=== PATIENT | male | born 1970 | race Caucasian/White ===

== ENCOUNTER 2017-05-04 17:47 | Inpatient (IN) | payer OTHER ==
[~2017-05-04] VITALS: Ht 190.5 cm; Wt 115.4 kg
[~2017-05-04 17:47] MED LIST: AMLO-511 PO; AMLO-512 PO; ARIP2 PO; ASPI-1182 PO; ATOR40TA28 PO; BECL8.7A5 IH; BUPR150T8 PO; CLON.5 PO; DIAZ5 PO; DICY20 PO; DOCU100C54 PO; EPIN0.3P3 IM; FLUO-191 PO; FLUT16H NASAL; FURO40 PO; GABA-533 PO; HYDR2TAB8 PO; IBUP-1506 PO; ISOS30TA6 PO; LISI-662 PO; LOPE2 PO; LORA10TA7 PO; MECL-111 PO; METO-296 PO; MOME13HF IH; MONT10TA21 PO; NITR.4 SL; OMEP20 PO; ONDA4 PO; POTA10CA44 PO; PRED10 PO; SIMV-259 PO; SPIR25 PO; SUCR1TAB PO; ZONI50CA3 PO
[2017-05-04 20:12] LABS: BASOPHILS # (AUTO) 0.06 K/uL (0.00-0.20); BASOPHILS % (AUTO) 0.9 % (0.0-2.0); EOSINOPHILS # (AUTO) 0.15 K/uL (0.00-0.70); EOSINOPHILS % (AUTO) 2.04 % (1.0-6.0); HEMATOCRIT 48.1 % (41-53); HEMOGLOBIN 16.4 g/dL (13.5-17.5); LYMPHOCYTES # (AUTO) 2.4 K/uL (1.0-4.8); MEAN CORPUSCULAR HEMOGLOBIN 31.3 pg (26.0-34.0); MEAN CORPUSCULAR VOLUME 92 fL (80-100); MONOCYTES # (AUTO) 0.4 K/uL (0.1-1.0); MONOCYTES % (AUTO) 5.6 % (2.0-9.0); NEUTROPHILS # (AUTO) 4.5 K/uL (1.8-7.7); NEUTROPHILS % (AUTO) 59.5 % (40.0-70.0); PLATELET COUNT (AUTO) 155 K/uL (150-450); RED BLOOD CELL COUNT(AUTO) 5.23 MIL/uL (4.50-5.90); RED CELL DISTRIBUTION WIDTH 14.1 % (11.5-14.5)
[2017-05-04] MEDS ORDERED: ONDANSETRON HCL 4 MG/2 ML VIAL IVP ONE (20:15)
[2017-05-04 20:20] LABS: ANION GAP 6 mmol/L (8-16); CALCIUM, TOTAL 8.9 mg/dL (8.8-10.5); CARBON DIOXIDE 28 mmol/L (22-29); CHLORIDE 101 mmol/L (98-107); CREATININE 0.99 mg/dL (0.60-1.30); GLOMERULAR FILTR. RATE CALC > 60 mL/min (>60); GLUCOSE,RANDOM 93 mg/dL (70-110); POTASSIUM 4.4 mmol/L (3.5-5.1); SODIUM SERUM 135 mmol/L (136-145); UREA NITROGEN, BLOOD 14 mg/dL (7-18)
[2017-05-04 20:26] LABS: ALANINE AMINOTRANSFERASE 31 U/L (12-78); ALKALINE PHOSPHATASE 91 U/L (46-116); ASPARTATE AMINOTRANSFERASE 17 U/L (15-37); BILIRUBIN,TOTAL 0.4 mg/dL (0.1-1.0); TOTAL PROTEIN, SERUM 7.3 g/dL (6.4-8.2)
[2017-05-04] MEDS ORDERED: IOVERSOL 350 MG/ML 100 ML VIAL ONE (21:29)
[2017-05-04] MEDS ORDERED: FentaNYL CITRATE-PF 100 MCG/2 ML VIAL IVP ONE ×2 (21:30→23:15)
[2017-05-04] MEDS ORDERED: 0.9% SODIUM CHLORIDE 10 ML SYRINGE IVP PRN (22:00)
[2017-05-04] MEDS ORDERED: ONDANSETRON HCL 4 MG/2 ML VIAL IVP PRN (22:00)
[2017-05-04] MEDS ORDERED: ACETAMINOPHEN 325 MG TABLET PO PRN (22:00)
[2017-05-04 23:29] VITALS: BP 138/63
[2017-05-05] MEDS ORDERED: 0.9% SODIUM CHLORIDE 10 ML SYRINGE IVP PRN (00:45)
[2017-05-05] MEDS ORDERED: MECLIZINE HCL 25 MG TABLET PO PRN (00:45)
[2017-05-05] MEDS ORDERED: ACETAMINOPHEN 325 MG TABLET PO PRN (00:45)
[2017-05-05] MEDS ORDERED: BISACODYL 10 MG RECTAL RECTAL SUPPOSITORY PR PRN (00:45)
[2017-05-05] MEDS ORDERED: MAGNESIUM HYDROXIDE SUSPENSION 30 ML UDCUP PO PRN (00:45)
[2017-05-05] MEDS ORDERED: ALBUTEROL SULFATE 2.5 MG/0.5 ML NEB SOLUTION NEB PRN (00:45)
[2017-05-05] MEDS ORDERED: IPRATROPIUM BROMIDE 0.5 MG/2.5 ML NEB SOLUTION NEB PRN (00:45)
[2017-05-05] MEDS ORDERED: ONDANSETRON HCL 4 MG/2 ML VIAL IVP PRN (00:45)
[2017-05-05] MEDS: NITROGLYCERIN 0.4 MG SUBLINGUAL TABLET #25 SL PRN ×2 (01:44→03:46)
[2017-05-05 04:25] VITALS: BP 140/78
[2017-05-05 06:06] LABS: BASOPHILS % (AUTO) 0.4 % (0.0-2.0); EOSINOPHILS % (AUTO) 2.9 % (1.0-6.0); HEMATOCRIT 46.3 % (41-53); HEMOGLOBIN 15.9 g/dL (13.5-17.5); LYMPHOCYTES # (AUTO) 1.9 K/uL (1.0-4.8); LYMPHOCYTES % (AUTO) 32.6 % (22.0-44.0); MEAN CORPUSCULAR HEMOGLOBIN 31.7 pg (26.0-34.0); MEAN CORPUSCULAR HGB CONC 34.3 G/dL (31.0-37.0); MEAN CORPUSCULAR VOLUME 92 fL (80-100); MONOCYTES # (AUTO) 0.4 K/uL (0.1-1.0); MONOCYTES % (AUTO) 7.7 % (2.0-9.0); NEUTROPHILS # (AUTO) 3.2 K/uL (1.8-7.7); NEUTROPHILS % (AUTO) 56.4 % (40.0-70.0); PLATELET COUNT (AUTO) 155 K/uL (150-450); RED BLOOD CELL COUNT(AUTO) 5.02 MIL/uL (4.50-5.90); RED CELL DISTRIBUTION WIDTH 14.2 % (11.5-14.5)
[2017-05-05 06:22] LABS: ALANINE AMINOTRANSFERASE 27 U/L (12-78); ALBUMIN 3.6 g/dL (3.4-5.0); ALKALINE PHOSPHATASE 87 U/L (46-116); ANION GAP 9 mmol/L (8-16); ASPARTATE AMINOTRANSFERASE 12 U/L (15-37); BILIRUBIN,TOTAL 0.6 mg/dL (0.1-1.0); CALCIUM, TOTAL 8.6 mg/dL (8.8-10.5); CARBON DIOXIDE 24 mmol/L (22-29); CHLORIDE 103 mmol/L (98-107); CHOL/HDL RATIO 4.9 (4.2-7.3); CHOLESTEROL 128 mg/dL (131-200); CREATININE 0.88 mg/dL (0.60-1.30); GLOMERULAR FILTR. RATE CALC > 60 mL/min (>60); GLUCOSE,RANDOM 104 mg/dL (70-110); HDL CHOLESTEROL 26 mg/dL (40-60); LDL CHOL (CALC.) 78 mg/dL (0-130); POTASSIUM 4.1 mmol/L (3.5-5.1); SODIUM SERUM 136 mmol/L (136-145); TOTAL PROTEIN, SERUM 6.6 g/dL (6.4-8.2); TRIGLYCERIDES 121 mg/dL (15-150); UREA NITROGEN, BLOOD 10 mg/dL (7-18)
[2017-05-05 07:21] VITALS: BP 136/92
[2017-05-05] MEDS: OMEPRAZOLE 20 MG CAPSULE PO SCH (09:03)
[2017-05-05] MEDS: ASPIRIN 81 MG CHEWABLE TABLET PO SCH (09:03)
[2017-05-05] MEDS: HEPARIN SODIUM,PORCINE 5,000 UNITS/ML VIAL SQ SCH ×2 (09:03→20:35)
[2017-05-05] MEDS: LISINOPRIL 5 MG TABLET PO SCH (09:04)
[2017-05-05] MEDS: SUCRALFATE 1 GM TABLET PO SCH ×3 (09:04→20:34)
[2017-05-05] MEDS: DOCUSATE SODIUM 100 MG CAPSULE PO SCH ×2 (09:06→20:34)
[2017-05-05] MEDS: FLUTICASONE PROPIONATE 50 MCG/SPRAY 16 GM NASAL SPRAY NASAL SCH ×2 (11:07→20:34)
[2017-05-05] MEDS: BECLOMETHASONE DIPR 80 MCG/PUFF 8.7 GM INHALER IH SCH ×2 (11:07→20:34)
[2017-05-05] MEDS: BuPROPion HCL 150 MG SR TABLET PO SCH (11:08)
[2017-05-05] MEDS: FLUoxetine HCL 20 MG CAPSULE PO SCH (11:08)
[2017-05-05 11:20] VITALS: BP 153/98
[2017-05-05] MEDS: HYDROmorphone 2 MG/ML SYRINGE IVP PRN ×2 (12:51→18:50)
[2017-05-05 15:09] VITALS: BP 134/98
[2017-05-05 19:48] VITALS: BP 123/68
[2017-05-05] MEDS ORDERED: ATORVASTATIN CALCIUM 40 MG TABLET PO SCH (21:00)
[2017-05-05] MEDS ORDERED: MONTELUKAST SODIUM 10 MG TABLET PO SCH (21:00)
[2017-05-06 00:09] VITALS: BP 158/110
[2017-05-06] MEDS: HYDROmorphone 2 MG/ML SYRINGE IVP PRN ×2 (00:54→07:49)
[2017-05-06 05:02] VITALS: BP 153/86
[2017-05-06 07:34] VITALS: BP 126/78
[2017-05-06] MEDS: DOCUSATE SODIUM 100 MG CAPSULE PO SCH (08:24)
[2017-05-06] MEDS: OMEPRAZOLE 20 MG CAPSULE PO SCH (08:33)
[2017-05-06] MEDS: LISINOPRIL 5 MG TABLET PO SCH (08:33)
[2017-05-06] MEDS: HEPARIN SODIUM,PORCINE 5,000 UNITS/ML VIAL SQ SCH (08:33)
[2017-05-06] MEDS: SUCRALFATE 1 GM TABLET PO SCH (08:34)
[2017-05-06] MEDS: FLUTICASONE PROPIONATE 50 MCG/SPRAY 16 GM NASAL SPRAY NASAL SCH (08:34)
[2017-05-06] MEDS: ASPIRIN 81 MG CHEWABLE TABLET PO SCH (08:34)
[2017-05-06] MEDS: BECLOMETHASONE DIPR 80 MCG/PUFF 8.7 GM INHALER IH SCH (08:34)
[2017-05-06] MEDS: FLUoxetine HCL 20 MG CAPSULE PO SCH (08:35)
[2017-05-06] MEDS: BuPROPion HCL 150 MG SR TABLET PO SCH (08:36)
[2017-05-06 11:00] VITALS: BP 136/80
== END 2017-05-06 11:55 | disposition home or self-care (01) | DRG 243 ==
LOC: EMS 17:48 → INTOOBSV 22:00 → 5N 22:00 → OBSVTOIN 22:00
PROVIDERS: ADMIT Internal Medicine; ATTEND Internal Medicine
DX: K21.9 Gastro-esophageal reflux disease without esophagitis (principal); J81.1 Chronic pulmonary edema; E87.2 Acidosis; F11.20 Opioid dependence, uncomplicated; J43.9 Emphysema, unspecified; I25.110 Atherosclerotic heart disease of native coronary artery with unstable angina pectoris; I11.9 Hypertensive heart disease without heart failure; E78.5 Hyperlipidemia, unspecified; F32.9 Major depressive disorder, single episode, unspecified; F12.90 Cannabis use, unspecified, uncomplicated; F17.210 Nicotine dependence, cigarettes, uncomplicated; K76.0 Fatty (change of) liver, not elsewhere classified; R09.1 Pleurisy; F19.10 Other psychoactive substance abuse, uncomplicated; I25.2 Old myocardial infarction; Z86.711 Personal history of pulmonary embolism
CPT/HCPCS: 71275; 76700; 87081; 93005; 93306; 93970; 96374; 96375; 96376; 99285; J1170; J1644; J2405; J3010; J3535